=== PATIENT | female | born 1950 | race Caucasian/White ===

== ENCOUNTER 2017-05-02 09:16 | Outpatient (CLI) | payer MEDICARE, OTHER ==
[2017-05-02 09:41] LABS: MEAN CORPUSCULAR HEMOGLOBIN 31.9 pg (28.0-34.0); MEAN CORPUSCULAR VOLUME 92.3 fl (80.0-100.0)
[2017-05-02 10:00] LABS: eGFR (African) > 60; eGFR (Non-African) > 60
== END 2017-05-02 09:17 ==
LOC: LAB 09:16
PROVIDERS: ATTEND Family Medicine
DX: E78.2 Mixed hyperlipidemia (principal); Z91.81 History of falling; Z83.49 Family history of other endocrine, nutritional and metabolic diseases
CPT/HCPCS: 36415; 80053; 80061; 84443; 85027